=== PATIENT | male | born 1975 | race Caucasian/White ===

== ENCOUNTER → 2019-06-20 | Outpatient (CLI) | payer OTHER ==
[~2019-06-20] MED LIST: GADOBUTROL 10 MMOL/10 ML (GADAVIST) VIAL IV ONE
--- NOTE | 2019-06-20 15:56 | Diagnostic Imaging Report ---
PROCEDURE: MR imaging of the brain with and without contrast. TECHNIQUE: Multiplanar, multisequence MR imaging of the brain was performed with and without contrast. INDICATION: Memory loss. Cognitive impairment. COMPARISON: None. FINDINGS: No abnormal intracranial signal or enhancement. No restricted water diffusion or hemosiderin deposition. Normal morphology including the major midline structures, posterior fossa and cerebellar pontine angle. Partially empty sella. The orbits are unremarkable on this nondedicated exam. Normal intracranial flow voids. No hydrocephalus or extra-axial fluid collections. Moderate mucosal thickening in the ethmoid, maxillary and sphenoid sinuses. Moderate right mastoid effusion. IMPRESSION: 1. Incidental partially empty sella. 2. No acute intracranial MRI findings. 3. Moderate paranasal sinus disease. 4. Nonspecific right mastoid effusion. Dictated by: Dictated on workstation # [id number]
== END ==
LOC: RAD 14:52
PROVIDERS: ATTEND Nurse Practitioner Family
DX: G31.84 Mild cognitive impairment of uncertain or unknown etiology (principal); R41.9 Unspecified symptoms and signs involving cognitive functions and awareness; J32.9 Chronic sinusitis, unspecified; M25.48 Effusion, other site
CPT/HCPCS: 70553